=== PATIENT | female | born 1985 | race Caucasian/White ===

== ENCOUNTER 2021-10-04 09:17 | Outpatient (CLI) | payer BC | END 2021-10-04 09:18 | disposition home or self-care (01) | LOC: CSHMRI 09:17 | PROVIDERS: ATTEND Clinical Nurse Specialist Medical-Surgical | DX: M54.50 Low back pain, unspecified (principal); M54.16 Radiculopathy, lumbar region; M47.816 Spondylosis without myelopathy or radiculopathy, lumbar region | CPT/HCPCS: 72148 ==